=== PATIENT | female | born 1940 | race Native Hawaiian/Other Pacific Islander ===

== ENCOUNTER 2016-12-08 13:26 | Inpatient (IN) | payer OTHER, MEDICARE ==
[~2016-12-08] VITALS: Ht 167.6 cm; Wt 70.6 kg
[2016-12-08 14:23] VITALS: BP 152/54; TEMP 98.2; Ht 167.6 cm; Wt 70.6 kg
[2016-12-08 20:00] VITALS: BP 153/58; TEMP 97.6
[2016-12-09] VITALS: BP 147/61; TEMP 97.6
[2016-12-09 04:00] VITALS: BP 139/66; TEMP 97.4
[2016-12-09 05:50] LABS: PLATELET COUNT 255 K/uL (152-353)
[2016-12-09 06:00] LABS: POTASSIUM 4.1 mmol/L (3.6-5.2)
[2016-12-09 07:51] VITALS: BP 131/52; TEMP 97.8
[2016-12-09 20:00] VITALS: BP 131/59; TEMP 98.1
[2016-12-10 20:29] VITALS: BP 181/55; TEMP 97.8
[2016-12-11 20:21] VITALS: BP 143/54; TEMP 97.6
[2016-12-12 07:15] VITALS: BP 140/66; TEMP 97.5
[2016-12-12 20:04] VITALS: BP 115/56; TEMP 98.1
[2016-12-13 08:14] VITALS: BP 147/69; TEMP 97.7
[2016-12-13 20:00] VITALS: BP 114/46; TEMP 98.1
[2016-12-14 08:00] VITALS: BP 144/57; TEMP 97.8
[2016-12-14 20:00] VITALS: BP 127/56; TEMP 98.3
[2016-12-15 08:00] VITALS: BP 118/55; TEMP 97.6
[2016-12-15 20:14] VITALS: BP 134/48; TEMP 98.3
[2016-12-16 06:10] LABS: PLATELET COUNT 183 K/uL (152-353)
[2016-12-16 06:26] LABS: POTASSIUM 3.9 mmol/L (3.6-5.2)
[2016-12-16 07:52] VITALS: BP 173/63; TEMP 97.6
[2016-12-16 20:30] VITALS: BP 131/44; TEMP 97.8
[2016-12-17 08:00] VITALS: BP 164/59; TEMP 98
[2016-12-17 20:00] VITALS: BP 126/48; TEMP 97.8
[2016-12-18 08:00] VITALS: BP 131/72; TEMP 97.9
[2016-12-18 20:10] VITALS: BP 131/63; TEMP 98.9
[2016-12-19 08:00] VITALS: BP 121/46; TEMP 99.1
[2016-12-19 20:00] VITALS: BP 101/38; TEMP 98.4
[2016-12-20 08:00] VITALS: BP 137/41; TEMP 97.9
[2016-12-20 20:00] VITALS: BP 133/59; TEMP 98.3
[2016-12-21 08:00] VITALS: BP 122/68; TEMP 97.5
[2016-12-21 20:17] VITALS: BP 132/62; TEMP 98.3
[2016-12-22 08:00] VITALS: BP 118/58; TEMP 97.7
[2016-12-22 20:00] VITALS: BP 109/56; TEMP 98
[2016-12-23 08:00] VITALS: BP 118/58; TEMP 98
[2016-12-23 20:00] VITALS: BP 122/55; TEMP 98.1
[2016-12-24 10:08] VITALS: BP 130/61; TEMP 98.1
[2016-12-24 12:08] VITALS: BP 113/53; TEMP 97.8
[2016-12-24 14:08] VITALS: BP 121/58; TEMP 97.8
[2016-12-24 16:08] VITALS: BP 126/54; BP 131/64; TEMP 97.6; TEMP 97.7
[2016-12-24 20:00] VITALS: BP 133/52; TEMP 98.2
[2016-12-25 08:00] VITALS: BP 93/57; TEMP 97.8
[2016-12-25 20:33] VITALS: BP 126/61; TEMP 98
[2016-12-26 07:45] LABS: PLATELET COUNT 114 K/uL (152-353)
[2016-12-26 08:00] VITALS: BP 142/68; TEMP 98.2
[2016-12-26 08:10] LABS: POTASSIUM 4.3 mmol/L (3.6-5.2)
[2016-12-26 20:00] VITALS: BP 150/77; TEMP 97.9
[2016-12-27 08:00] VITALS: BP 132/59; TEMP 98
[2016-12-27 20:00] VITALS: BP 124/59; TEMP 97.8
[2016-12-28 08:00] VITALS: BP 117/55; TEMP 97.8
[2016-12-28 20:30] VITALS: BP 110/52; TEMP 97.9
[2016-12-29 08:00] VITALS: BP 110/54; TEMP 97.9
== END 2016-12-29 16:12 | disposition home or self-care (01) | DRG 556 ==
LOC: MED/SURG 13:26
PROVIDERS: Internal Medicine; ADMIT Internal Medicine
DX: M62.81 Muscle weakness (generalized) (principal); M86.8X7 Other osteomyelitis, ankle and foot; E11.9 Type 2 diabetes mellitus without complications; I12.9 Hypertensive chronic kidney disease with stage 1 through stage 4 chronic kidney disease, or unspecified chronic kidney disease; N18.3 Chronic kidney disease, stage 3 (moderate); E03.8 Other specified hypothyroidism; F03.90 Unspecified dementia, unspecified severity, without behavioral disturbance, psychotic disturbance, mood disturbance, and anxiety; M79.671 Pain in right foot
CPT/HCPCS: 36415; 36591; 80053; 80202; 82947; 82948; 85027; 85651; 96372; J0295; J1200; J1815; J2930

== ENCOUNTER 2017-01-20 11:08 | Outpatient (CLI) | payer OTHER, MEDICARE | END 2017-01-20 20:18 | disposition home or self-care (01) | LOC: RAD 11:08 | DX: T82.598A Other mechanical complication of other cardiac and vascular devices and implants, initial encounter (principal) ==

== ENCOUNTER 2017-12-08 11:13 | Outpatient (CLI) | payer OTHER, MEDICARE | END 2017-12-08 22:21 | disposition home or self-care (01) | LOC: LABW 11:13 | DX: E87.5 Hyperkalemia (principal); E83.52 Hypercalcemia | CPT/HCPCS: 36415; 82306; 82310 ==

== ENCOUNTER 2019-03-07 11:00 | Emergency (ER) | payer OTHER, MEDICARE ==
[~2019-03-07] VITALS: Ht 160 cm; Wt 70.8 kg
[2019-03-07 12:08] LABS: PLATELET COUNT 173 K/uL (152-353)
[2019-03-07 12:19] LABS: POTASSIUM 4.7 mmol/L (3.6-5.2)
[2019-03-07 13:14] VITALS: BP 136/48; TEMP 97.7
== END 2019-03-07 13:14 | disposition home or self-care (01) ==
LOC: ED 11:00
PROVIDERS: Emergency Medicine
PROC: 0HQ0XZZ Repair Scalp Skin, External Approach (ICD-10-PCS; principal; 2019-03-07)
DX: S01.01XA Laceration without foreign body of scalp, initial encounter (principal); S80.212A Abrasion, left knee, initial encounter; W01.198A Fall on same level from slipping, tripping and stumbling with subsequent striking against other object, initial encounter; Y92.89 Other specified places as the place of occurrence of the external cause
CPT/HCPCS: 80053; 85027; 90715; 93005; 96372; 99283

== ENCOUNTER 2019-03-13 14:05 | Inpatient (IN) | payer OTHER, MEDICARE ==
[~2019-03-13] VITALS: Ht 167.6 cm; Wt 69.9 kg
[2019-03-13 15:12] VITALS: BP 128/43; TEMP 98; Ht 167.6 cm; Wt 69.9 kg
[2019-03-13 15:51] LABS: PLATELET COUNT 168 K/uL (152-353)
[2019-03-13 16:06] LABS: POTASSIUM 4.2 mmol/L (3.6-5.2)
[2019-03-13] MEDS ORDERED: MEMA10TA2 PO (16:44)
[2019-03-13] MEDS ORDERED: LOVASTATIN40 MG PO (16:45)
[2019-03-13] MEDS ORDERED: GABA400C2 PO (16:47)
[2019-03-13] MEDS ORDERED: BENA20TA2 PO (16:48)
[2019-03-13] MEDS ORDERED: LEVO0.0723 PO (16:49)
[2019-03-13] MEDS ORDERED: LANTUS100 UNIT/M SC (16:50)
[2019-03-13 20:00] VITALS: BP 113/44; TEMP 98.9
[2019-03-14] VITALS: BP 103/53; TEMP 98.7
[2019-03-14 04:00] VITALS: BP 115/45; TEMP 98.4
[2019-03-14 06:23] LABS: PLATELET COUNT 158 K/uL (152-353)
[2019-03-14 06:34] LABS: POTASSIUM 3.7 mmol/L (3.6-5.2)
[2019-03-14 08:00] VITALS: BP 117/41; TEMP 97.6
[2019-03-14 12:00] VITALS: BP 100/45; TEMP 97.8
[2019-03-14 16:00] VITALS: BP 139/44; TEMP 98.3
[2019-03-14 20:00] VITALS: BP 129/51; TEMP 99.2
[2019-03-15] VITALS: BP 116/41; TEMP 98.9
[2019-03-15 04:00] VITALS: BP 109/42; TEMP 98
[2019-03-15 06:46] LABS: POTASSIUM 4.3 mmol/L (3.6-5.2)
[2019-03-15 06:56] LABS: PLATELET COUNT 139 K/uL (152-353)
[2019-03-15 08:00] VITALS: BP 120/49; TEMP 97.9
[2019-03-15 12:00] VITALS: BP 109/47; TEMP 97.9
[2019-03-15 16:00] VITALS: BP 137/54; TEMP 98
[2019-03-15 20:00] VITALS: BP 134/50; TEMP 99
[2019-03-16] VITALS: BP 127/42; TEMP 99.4
[2019-03-16 04:00] VITALS: BP 129/52; TEMP 89.9
[2019-03-16 08:00] VITALS: BP 125/61; TEMP 98.6
[2019-03-16] MEDS ORDERED: CEFD300C2 PO (09:58)
[2019-03-16] MEDS ORDERED: TYLENOL325 MG PO (09:58)
[2019-03-16] MEDS ORDERED: GABA100C2 PO (09:59)
== END 2019-03-16 10:35 | DRG 640 ==
LOC: MED/SURG 14:05
PROVIDERS: ADMIT Internal Medicine
DX: E86.0 Dehydration (principal); G92 Toxic encephalopathy; N39.0 Urinary tract infection, site not specified; N17.8 Other acute kidney failure; M86.8X7 Other osteomyelitis, ankle and foot; B96.1 Klebsiella pneumoniae [K. pneumoniae] as the cause of diseases classified elsewhere; E03.8 Other specified hypothyroidism; E11.69 Type 2 diabetes mellitus with other specified complication; E11.22 Type 2 diabetes mellitus with diabetic chronic kidney disease; I12.9 Hypertensive chronic kidney disease with stage 1 through stage 4 chronic kidney disease, or unspecified chronic kidney disease; N18.3 Chronic kidney disease, stage 3 (moderate); F03.90 Unspecified dementia, unspecified severity, without behavioral disturbance, psychotic disturbance, mood disturbance, and anxiety; R53.1 Weakness; R30.0 Dysuria
CPT/HCPCS: 80048; 80053; 81000; 82948; 83880; 84443; 85027; 87077; 87086; 87088; 87186; 93005; 93306; 96360; 96361; 96367; 96372; J0696; J1650; J1815

== ENCOUNTER 2019-03-17 04:24 | Outpatient (CLI) | payer OTHER ==
[~2019-03-17 04:24] MED LIST: BENA20TA2 PO; CEFD300C2 PO; GABA100C2 PO; GABA400C2 PO; LANTUS100 UNIT/M SC; LEVO0.0723 PO; LOVASTATIN40 MG PO; MEMA10TA2 PO; TYLENOL325 MG PO
[2019-03-17 05:41] LABS: PLATELET COUNT 192 K/uL (152-353)
[2019-03-17 06:02] LABS: POTASSIUM 4.5 mmol/L (3.6-5.2)
== END 2019-03-17 22:37 | disposition home or self-care (01) ==
LOC: LAB 04:24
PROVIDERS: Internal Medicine
DX: E11.9 Type 2 diabetes mellitus without complications (principal); I10 Essential (primary) hypertension
CPT/HCPCS: 80053; 80061; 82306; 83036; 84443; 85027; 87081

== ENCOUNTER 2019-03-26 15:23 | Outpatient (CLI) | payer OTHER | END 2019-03-26 19:43 | disposition home or self-care (01) | LOC: RAD 15:23 | DX: M79.605 Pain in left leg (principal) ==

== ENCOUNTER 2019-04-09 09:57 | Inpatient (IN) | payer OTHER | END 2019-05-10 10:38 | disposition still patient (30) | LOC: PAVB 09:57 | PROVIDERS: ADMIT Internal Medicine ==

== ENCOUNTER 2019-05-10 11:41 | Inpatient (IN) | payer OTHER | END 2019-06-10 16:29 | disposition still patient (30) | LOC: PAVB 11:41 | PROVIDERS: ADMIT Internal Medicine ==

== ENCOUNTER 2019-05-17 16:46 | Outpatient (CLI) | payer OTHER | END 2019-05-17 23:55 | disposition home or self-care (01) | LOC: RAD 16:46 | DX: M25.561 Pain in right knee (principal); M25.461 Effusion, right knee ==

== ENCOUNTER 2019-06-10 16:44 | Inpatient (IN) | payer OTHER | END 2019-07-10 09:36 | disposition still patient (30) | LOC: PAVB 16:44 | PROVIDERS: ADMIT Internal Medicine ==

== ENCOUNTER 2019-06-12 10:05 | Outpatient (CLI) | payer OTHER | END 2019-06-12 22:52 | disposition home or self-care (01) | LOC: LAB 10:05 | DX: E11.9 Type 2 diabetes mellitus without complications (principal) | CPT/HCPCS: 83036 ==

== ENCOUNTER 2019-06-18 20:27 | Outpatient (CLI) | payer OTHER | END 2019-06-18 22:42 | disposition home or self-care (01) | LOC: LAB 20:27 | DX: R73.9 Hyperglycemia, unspecified (principal) | CPT/HCPCS: 82947 ==

== ENCOUNTER 2019-06-26 20:03 | Outpatient (CLI) | payer OTHER, MEDICARE | END 2019-06-26 23:08 | disposition home or self-care (01) | LOC: LAB 20:03 | DX: E16.1 Other hypoglycemia (principal) | CPT/HCPCS: 82947 ==

== ENCOUNTER 2019-07-03 20:05 | Outpatient (CLI) | payer OTHER, MEDICARE | END 2019-07-03 21:21 | disposition home or self-care (01) | LOC: LAB 20:05 | DX: E11.21 Type 2 diabetes mellitus with diabetic nephropathy (principal) | CPT/HCPCS: 82947 ==

== ENCOUNTER 2019-07-10 11:58 | Inpatient (IN) | payer OTHER | END 2019-08-10 11:13 | disposition still patient (30) | LOC: PAVB 11:58 | PROVIDERS: ADMIT Internal Medicine ==

== ENCOUNTER 2019-08-10 12:05 | Inpatient (IN) | payer OTHER | END 2019-09-09 08:00 | disposition still patient (30) | LOC: PAVB 12:05 | PROVIDERS: ADMIT Internal Medicine ==

== ENCOUNTER 2019-09-09 11:11 | Inpatient (IN) | payer OTHER | END 2019-10-10 08:35 | disposition still patient (30) | LOC: PAVB 11:11 | PROVIDERS: ADMIT Internal Medicine ==

== ENCOUNTER 2019-09-13 06:44 | Outpatient (CLI) | payer OTHER, BC ==
[2019-09-13 08:17] LABS: PLATELET COUNT 179 K/uL (152-353)
[2019-09-13 08:48] LABS: POTASSIUM 4.6 mmol/L (3.6-5.2)
== END 2019-09-13 19:42 | disposition home or self-care (01) ==
LOC: LAB 06:44
PROVIDERS: Internal Medicine
DX: I10 Essential (primary) hypertension (principal); E11.9 Type 2 diabetes mellitus without complications
CPT/HCPCS: 36415; 80053; 82306; 83036; 84443; 85027

== ENCOUNTER 2019-10-10 08:58 | Inpatient (IN) | payer OTHER | END 2019-11-10 09:57 | disposition still patient (30) | LOC: PAVB 08:58 | PROVIDERS: ADMIT Internal Medicine ==

== ENCOUNTER 2019-11-10 10:43 | Inpatient (IN) | payer OTHER | END 2019-12-09 13:16 | disposition still patient (30) | LOC: PAVB 10:43 | PROVIDERS: ADMIT Internal Medicine ==

== ENCOUNTER 2019-12-09 14:07 | Inpatient (IN) | payer OTHER | END 2020-01-09 09:43 | disposition still patient (30) | LOC: PAVB 14:07 | PROVIDERS: ADMIT Internal Medicine ==

== ENCOUNTER 2019-12-12 08:34 | Outpatient (CLI) | payer OTHER | END 2019-12-12 19:28 | disposition home or self-care (01) | LOC: LAB 08:34 | DX: E11.9 Type 2 diabetes mellitus without complications (principal) | CPT/HCPCS: 83036 ==

== ENCOUNTER 2020-01-09 10:35 | Inpatient (IN) | payer OTHER | END 2020-02-08 09:04 | disposition still patient (30) | LOC: PAVB 10:35 | PROVIDERS: ADMIT Internal Medicine ==

== ENCOUNTER 2020-01-22 08:50 | Outpatient (CLI) | payer OTHER | END 2020-01-22 21:10 | disposition home or self-care (01) | LOC: RAD 08:50 | DX: Z91.81 History of falling (principal); M25.512 Pain in left shoulder ==

== ENCOUNTER 2020-02-08 10:15 | Inpatient (IN) | payer OTHER | END 2020-03-10 09:13 | disposition still patient (30) | LOC: PAVB 10:15 | PROVIDERS: ADMIT Internal Medicine | CPT/HCPCS: 87635; U0002 ==

== ENCOUNTER 2020-02-23 18:41 | Outpatient (CLI) | payer OTHER ==
[2020-02-23 18:52] LABS: PLATELET COUNT 175 K/uL (152-353)
[2020-02-23 19:02] LABS: POTASSIUM 4.5 mmol/L (3.6-5.2)
== END 2020-02-23 21:47 | disposition home or self-care (01) ==
LOC: LABW 18:41
PROVIDERS: Internal Medicine
DX: U07.1 COVID-19 (principal); Z79.899 Other long term (current) drug therapy
CPT/HCPCS: 80053; 85027; 85379; 86140

== ENCOUNTER 2020-02-25 11:52 | Outpatient (CLI) | payer OTHER | END 2020-02-25 19:42 | disposition home or self-care (01) | LOC: RESP 11:52 | DX: U07.1 COVID-19 (principal) | CPT/HCPCS: 93005 ==

== ENCOUNTER 2020-03-08 07:07 | Outpatient (CLI) | payer OTHER | END 2020-03-08 23:37 | disposition home or self-care (01) | LOC: LAB 07:07 | DX: E16.2 Hypoglycemia, unspecified (principal) | CPT/HCPCS: 82947 ==

== ENCOUNTER 2020-03-10 11:00 | Inpatient (IN) | payer OTHER | END 2020-04-09 10:22 | disposition still patient (30) | LOC: PAVB 11:00 | PROVIDERS: ADMIT Internal Medicine | CPT/HCPCS: 87635; U0002 ==

== ENCOUNTER 2020-03-11 03:20 | Outpatient (CLI) | payer OTHER ==
[2020-03-11 06:07] LABS: PLATELET COUNT 238 K/uL (152-353)
[2020-03-11 06:21] LABS: POTASSIUM 4.2 mmol/L (3.6-5.2)
== END 2020-03-11 19:04 | disposition home or self-care (01) ==
LOC: LAB 03:20
PROVIDERS: Internal Medicine
DX: E11.9 Type 2 diabetes mellitus without complications (principal); E03.8 Other specified hypothyroidism; E78.49 Other hyperlipidemia
CPT/HCPCS: 80053; 80061; 82306; 83036; 84443; 85027

== ENCOUNTER 2020-04-09 11:28 | Inpatient (IN) | payer OTHER | END 2020-05-10 09:18 | disposition still patient (30) | LOC: PAVB 11:28 | PROVIDERS: ADMIT Internal Medicine ==

== ENCOUNTER 2020-05-10 09:48 | Inpatient (IN) | payer OTHER | END 2020-06-10 12:19 | disposition still patient (30) | LOC: PAVB 09:48 | PROVIDERS: ADMIT Internal Medicine ==

== ENCOUNTER 2020-06-10 13:12 | Inpatient (IN) | payer OTHER | END 2020-07-10 11:07 | disposition still patient (30) | LOC: PAVB 13:12 | PROVIDERS: ADMIT Internal Medicine ==

== ENCOUNTER 2020-06-16 06:43 | Outpatient (CLI) | payer OTHER | END 2020-06-16 21:21 | disposition home or self-care (01) | LOC: LAB 06:43 | DX: E11.9 Type 2 diabetes mellitus without complications (principal) | CPT/HCPCS: 83036 ==

== ENCOUNTER 2020-07-10 13:54 | Inpatient (IN) | payer OTHER | END 2020-08-10 08:00 | disposition still patient (30) | LOC: PAVB 13:54 | PROVIDERS: ADMIT Internal Medicine ==

== ENCOUNTER 2020-08-10 09:00 | Inpatient (IN) | payer OTHER | END 2020-09-09 10:00 | disposition still patient (30) | LOC: PAVB 09:00 | PROVIDERS: ADMIT Internal Medicine; ATTEND Internal Medicine ==

== ENCOUNTER 2020-09-09 11:25 | Inpatient (IN) | payer OTHER | END 2020-10-10 09:05 | disposition still patient (30) | LOC: PAVB 11:25 | PROVIDERS: ADMIT Internal Medicine; ATTEND Internal Medicine ==

== ENCOUNTER 2020-09-12 09:15 | Outpatient (CLI) | payer OTHER ==
[2020-09-12 09:56] LABS: POTASSIUM 4.5 mmol/L (3.6-5.2)
[2020-09-12 10:17] LABS: PLATELET COUNT 182 K/uL (152-353)
== END 2020-09-12 18:56 | disposition home or self-care (01) ==
LOC: LAB 09:15
PROVIDERS: ATTEND Internal Medicine
DX: E11.9 Type 2 diabetes mellitus without complications (principal); I10 Essential (primary) hypertension; E03.8 Other specified hypothyroidism; E55.9 Vitamin D deficiency, unspecified
CPT/HCPCS: 80053; 82306; 83036; 84443; 85027

== ENCOUNTER 2020-09-21 10:30 | Outpatient (CLI) | payer OTHER | END 2020-09-21 19:41 | disposition home or self-care (01) | LOC: LAB 10:30 | PROVIDERS: ATTEND Internal Medicine | DX: R19.7 Diarrhea, unspecified (principal) | CPT/HCPCS: 83630; 87015; 87045; 87324; 87328; 87329; 87449; 87899 ==

== ENCOUNTER 2020-10-10 09:36 | Inpatient (IN) | payer OTHER | END 2020-11-10 14:58 | disposition still patient (30) | LOC: PAVB 09:36 | PROVIDERS: ADMIT Internal Medicine; ATTEND Internal Medicine ==

== ENCOUNTER 2020-11-10 15:28 | Inpatient (IN) | payer OTHER | END 2020-12-08 09:56 | disposition still patient (30) | LOC: PAVB 15:28 | PROVIDERS: ADMIT Internal Medicine; ATTEND Internal Medicine ==

== ENCOUNTER 2020-11-13 08:33 | Outpatient (CLI) | payer OTHER | END 2020-11-13 20:05 | disposition home or self-care (01) | LOC: LAB 08:33 | PROVIDERS: ATTEND Internal Medicine | DX: E03.8 Other specified hypothyroidism (principal) | CPT/HCPCS: 84443 ==

== ENCOUNTER 2020-12-08 10:37 | Inpatient (IN) | payer OTHER | END 2021-01-08 10:16 | disposition still patient (30) | LOC: PAVB 10:37 | PROVIDERS: ADMIT Internal Medicine; ATTEND Internal Medicine ==

== ENCOUNTER 2020-12-08 12:00 | Outpatient (CLI) | payer OTHER | END 2020-12-08 23:14 | disposition home or self-care (01) | LOC: LAB 12:00 | PROVIDERS: ATTEND Internal Medicine | DX: E11.9 Type 2 diabetes mellitus without complications (principal) | CPT/HCPCS: 83036 ==

== ENCOUNTER 2021-01-01 22:02 | Outpatient (CLI) | payer OTHER | END 2021-01-01 23:05 | LOC: LAB 22:02 | PROVIDERS: ATTEND Internal Medicine | DX: E11.9 Type 2 diabetes mellitus without complications (principal) | CPT/HCPCS: 82947 ==

== ENCOUNTER 2021-01-08 10:51 | Inpatient (IN) | payer OTHER | END 2021-02-07 10:52 | disposition still patient (30) | LOC: PAVB 10:51 | PROVIDERS: ADMIT Internal Medicine; ATTEND Internal Medicine ==

== ENCOUNTER 2021-01-22 14:10 | Outpatient (CLI) | payer OTHER | END 2021-01-22 22:01 | disposition home or self-care (01) | LOC: INF 14:10 | PROVIDERS: ATTEND Internal Medicine | DX: Z23 Encounter for immunization (principal) | CPT/HCPCS: 96372 ==

== ENCOUNTER 2021-02-07 11:22 | Inpatient (IN) | payer OTHER | END 2021-03-10 14:41 | disposition still patient (30) | LOC: PAVB 11:22 | PROVIDERS: ADMIT Internal Medicine; ATTEND Internal Medicine ==

== ENCOUNTER 2021-02-12 08:36 | Outpatient (CLI) | payer OTHER | END 2021-02-12 20:24 | disposition home or self-care (01) | LOC: INF 08:36 | PROVIDERS: ATTEND Internal Medicine | DX: Z23 Encounter for immunization (principal) | CPT/HCPCS: 96372 ==

== ENCOUNTER 2021-03-10 07:33 | Outpatient (CLI) | payer OTHER ==
[2021-03-10 09:39] LABS: PLATELET COUNT 167 K/uL (152-353)
[2021-03-10 10:10] LABS: POTASSIUM 3.9 mmol/L (3.6-5.2)
== END 2021-03-10 19:07 | disposition home or self-care (01) ==
LOC: LAB 07:33
PROVIDERS: ATTEND Internal Medicine
DX: E78.49 Other hyperlipidemia (principal); E11.9 Type 2 diabetes mellitus without complications
CPT/HCPCS: 80053; 80061; 82306; 83036; 84443; 85027

== ENCOUNTER 2021-03-10 15:26 | Inpatient (IN) | payer OTHER | END 2021-04-09 08:00 | disposition still patient (30) | LOC: PAVB 15:26 | PROVIDERS: ADMIT Internal Medicine; ATTEND Internal Medicine ==

== ENCOUNTER 2021-03-16 09:54 | Outpatient (CLI) | payer OTHER | END 2021-03-16 21:46 | disposition home or self-care (01) | LOC: RAD 09:54 | PROVIDERS: ATTEND Internal Medicine | DX: Z13.820 Encounter for screening for osteoporosis (principal); N95.8 Other specified menopausal and perimenopausal disorders ==

== ENCOUNTER 2021-04-09 09:00 | Inpatient (IN) | payer OTHER | END 2021-05-10 08:00 | disposition still patient (30) | LOC: PAVB 09:00 | PROVIDERS: ADMIT Internal Medicine; ATTEND Internal Medicine ==

== ENCOUNTER 2021-05-05 05:59 | Outpatient (CLI) | payer OTHER | END 2021-05-05 20:30 | disposition home or self-care (01) | LOC: LAB 05:59 | PROVIDERS: ATTEND Internal Medicine | DX: M10.9 Gout, unspecified (principal) | CPT/HCPCS: 84550 ==

== ENCOUNTER 2021-05-10 09:00 | Inpatient (IN) | payer OTHER | END 2021-06-10 10:36 | disposition still patient (30) | LOC: PAVB 09:00 | PROVIDERS: ADMIT Internal Medicine; ATTEND Internal Medicine ==

== ENCOUNTER 2021-06-10 13:43 | Inpatient (IN) | payer OTHER | END 2021-07-10 08:46 | disposition still patient (30) | LOC: PAVB 13:43 | PROVIDERS: ADMIT Internal Medicine; ATTEND Internal Medicine ==

== ENCOUNTER 2021-06-11 07:44 | Outpatient (CLI) | payer OTHER | END 2021-06-11 21:22 | disposition home or self-care (01) | LOC: LAB 07:44 | PROVIDERS: ATTEND Internal Medicine | DX: E11.9 Type 2 diabetes mellitus without complications (principal) | CPT/HCPCS: 83036 ==

== ENCOUNTER 2021-06-23 07:07 | Outpatient (CLI) | payer OTHER | END 2021-06-23 19:00 | disposition home or self-care (01) | LOC: LAB 07:07 | PROVIDERS: ATTEND Internal Medicine | DX: M10.9 Gout, unspecified (principal) | CPT/HCPCS: 84550 ==

== ENCOUNTER 2021-09-09 10:56 | Inpatient (IN) | payer OTHER | END 2021-10-10 08:24 | disposition still patient (30) | LOC: PAVB 10:56 | PROVIDERS: ADMIT Internal Medicine; ATTEND Internal Medicine ==

== ENCOUNTER 2021-09-09 12:11 | Outpatient (CLI) | payer OTHER ==
[2021-09-09 13:07] LABS: PLATELET COUNT 148 K/uL (152-353)
[2021-09-09 13:38] LABS: POTASSIUM 4.1 mmol/L (3.6-5.2)
== END 2021-09-09 20:27 | disposition home or self-care (01) ==
LOC: LAB 12:11
PROVIDERS: ATTEND Internal Medicine
DX: E11.9 Type 2 diabetes mellitus without complications (principal); E03.8 Other specified hypothyroidism; E55.9 Vitamin D deficiency, unspecified
CPT/HCPCS: 80053; 82306; 83036; 84443; 85027

== ENCOUNTER 2021-09-25 07:05 | Outpatient (CLI) | payer OTHER | END 2021-09-25 19:23 | disposition home or self-care (01) | LOC: LAB 07:05 | PROVIDERS: ATTEND Internal Medicine | DX: M10.9 Gout, unspecified (principal) | CPT/HCPCS: 36415; 84550 ==

== ENCOUNTER 2021-10-10 09:06 | Inpatient (IN) | payer OTHER | END 2021-11-10 09:33 | disposition still patient (30) | LOC: PAVB 09:06 | PROVIDERS: ADMIT Internal Medicine; ATTEND Internal Medicine ==

== ENCOUNTER 2021-11-10 15:47 | Inpatient (IN) | payer OTHER | END 2021-12-08 08:58 | disposition still patient (30) | LOC: PAVB 15:47 | PROVIDERS: ADMIT Internal Medicine; ATTEND Internal Medicine ==

== ENCOUNTER 2021-12-08 12:27 | Inpatient (IN) | payer OTHER | END 2022-01-08 08:41 | disposition still patient (30) | LOC: PAVB 12:27 | PROVIDERS: ADMIT Internal Medicine; ATTEND Internal Medicine ==

== ENCOUNTER 2021-12-10 09:02 | Outpatient (CLI) | payer OTHER | END 2021-12-10 19:08 | disposition home or self-care (01) | LOC: LAB 09:02 | PROVIDERS: ATTEND Internal Medicine | DX: E11.9 Type 2 diabetes mellitus without complications (principal) | CPT/HCPCS: 83036 ==

== ENCOUNTER 2022-01-08 08:29 | Outpatient (CLI) | payer OTHER | END 2022-01-08 20:47 | disposition home or self-care (01) | LOC: LAB 08:29 | PROVIDERS: ATTEND Internal Medicine | DX: E11.9 Type 2 diabetes mellitus without complications (principal) | CPT/HCPCS: 83036 ==

== ENCOUNTER 2022-01-08 09:36 | Inpatient (IN) | payer OTHER | END 2022-02-07 10:17 | disposition still patient (30) | LOC: PAVB 09:36 | PROVIDERS: ADMIT Internal Medicine; ATTEND Internal Medicine ==

== ENCOUNTER 2022-01-17 07:05 | Outpatient (CLI) | payer OTHER | END 2022-01-17 19:40 | disposition home or self-care (01) | LOC: LAB 07:05 | PROVIDERS: ATTEND Internal Medicine | DX: R82.998 Other abnormal findings in urine (principal); R35.0 Frequency of micturition; R41.82 Altered mental status, unspecified | CPT/HCPCS: 81000; 87077; 87086; 87088; 87186 ==

== ENCOUNTER 2022-02-06 22:51 | Outpatient (CLI) | payer OTHER | END 2022-02-06 23:32 | disposition home or self-care (01) | LOC: LAB 22:51 | PROVIDERS: ATTEND Internal Medicine | DX: N39.0 Urinary tract infection, site not specified (principal) | CPT/HCPCS: 81000; 87088 ==

== ENCOUNTER 2022-02-07 12:52 | Inpatient (IN) | payer OTHER | END 2022-03-10 09:36 | disposition still patient (30) | LOC: PAVB 12:52 | PROVIDERS: ADMIT Internal Medicine; ATTEND Internal Medicine ==

== ENCOUNTER 2022-02-08 15:09 | Outpatient (CLI) | payer OTHER ==
[2022-02-08 15:19] LABS: PLATELET COUNT 181 K/uL (152-353)
[2022-02-08 15:29] LABS: POTASSIUM 5.1 mmol/L (3.6-5.2)
== END 2022-02-08 19:04 | disposition home or self-care (01) ==
LOC: LAB 15:09
PROVIDERS: ATTEND Internal Medicine
DX: M62.81 Muscle weakness (generalized) (principal); I50.9 Heart failure, unspecified; E11.22 Type 2 diabetes mellitus with diabetic chronic kidney disease; I11.0 Hypertensive heart disease with heart failure; N18.30 Chronic kidney disease, stage 3 unspecified
CPT/HCPCS: 80053; 85027

== ENCOUNTER 2022-03-01 14:52 | Outpatient (CLI) | payer OTHER ==
[2022-03-01 15:17] LABS: POTASSIUM 4.4 mmol/L (3.6-5.2)
[2022-03-01 15:26] LABS: PLATELET COUNT 286 K/uL (152-353)
== END 2022-03-01 19:02 | disposition home or self-care (01) ==
LOC: LAB 14:52
PROVIDERS: ATTEND Internal Medicine
DX: R63.0 Anorexia (principal)
CPT/HCPCS: 80053; 85027

== ENCOUNTER 2022-03-10 09:07 | Outpatient (CLI) | payer OTHER ==
[2022-03-10 10:05] LABS: PLATELET COUNT 264 K/uL (152-353)
== END 2022-03-10 19:10 | disposition home or self-care (01) ==
LOC: LAB 09:07
PROVIDERS: ATTEND Internal Medicine
DX: E78.49 Other hyperlipidemia (principal); E11.9 Type 2 diabetes mellitus without complications; N18.30 Chronic kidney disease, stage 3 unspecified
CPT/HCPCS: 80053; 80061; 82306; 83036; 84443; 85027

== ENCOUNTER 2022-03-10 13:31 | Inpatient (IN) | payer OTHER | END 2022-04-09 09:04 | disposition still patient (30) | LOC: PAVB 13:31 | PROVIDERS: ADMIT Internal Medicine; ATTEND Internal Medicine ==

== ENCOUNTER 2022-04-09 11:08 | Inpatient (IN) | payer OTHER | END 2022-05-10 09:16 | disposition still patient (30) | LOC: PAVB 11:08 | PROVIDERS: ADMIT Internal Medicine; ATTEND Internal Medicine ==

== ENCOUNTER 2022-05-10 11:36 | Inpatient (IN) | payer OTHER | END 2022-06-10 09:02 | disposition still patient (30) | LOC: PAVB 11:36 | PROVIDERS: ADMIT Internal Medicine; ATTEND Internal Medicine ==

== ENCOUNTER 2022-06-10 11:47 | Inpatient (IN) | payer OTHER | END 2022-07-10 10:25 | disposition still patient (30) | LOC: PAVB 11:47 | PROVIDERS: ADMIT Internal Medicine Endocrinology, Diabetes & Metabolism; ATTEND Internal Medicine Endocrinology, Diabetes & Metabolism ==

== ENCOUNTER 2022-06-11 16:26 | Outpatient (CLI) | payer OTHER | END 2022-06-11 21:52 | disposition home or self-care (01) | LOC: RAD 16:26 | PROVIDERS: ATTEND Internal Medicine Endocrinology, Diabetes & Metabolism | DX: R05.9 Cough, unspecified (principal) ==

== ENCOUNTER 2022-06-14 07:09 | Outpatient (CLI) | payer OTHER | END 2022-06-14 18:52 | disposition home or self-care (01) | LOC: LAB 07:09 | PROVIDERS: ATTEND Internal Medicine Endocrinology, Diabetes & Metabolism | DX: E11.9 Type 2 diabetes mellitus without complications (principal) | CPT/HCPCS: 36415; 83036 ==

== ENCOUNTER 2022-06-21 14:18 | Outpatient (CLI) | payer OTHER ==
[2022-06-21 17:35] LABS: PLATELET COUNT 345 K/uL (152-353)
[2022-06-21 17:54] LABS: POTASSIUM 5.9 mmol/L (3.6-5.2)
== END 2022-06-21 19:23 | disposition home or self-care (01) ==
LOC: LAB 14:18
PROVIDERS: ATTEND Internal Medicine Endocrinology, Diabetes & Metabolism
DX: R85.5 Abnormal microbiological findings in specimens from digestive organs and abdominal cavity (principal)
CPT/HCPCS: 80048; 85027; 87015; 87045; 87324; 87449; 87899

== ENCOUNTER 2022-06-23 07:25 | Outpatient (CLI) | payer OTHER | END 2022-06-23 18:47 | disposition home or self-care (01) | LOC: LAB 07:25 | PROVIDERS: ATTEND Internal Medicine Endocrinology, Diabetes & Metabolism | DX: R85.5 Abnormal microbiological findings in specimens from digestive organs and abdominal cavity (principal) | CPT/HCPCS: 87046 ==

== ENCOUNTER 2022-07-10 12:31 | Inpatient (IN) | payer OTHER | END 2022-08-10 14:46 | disposition still patient (30) | LOC: PAVB 12:31 | PROVIDERS: ADMIT Internal Medicine Endocrinology, Diabetes & Metabolism; ATTEND Internal Medicine Endocrinology, Diabetes & Metabolism ==

== ENCOUNTER 2022-08-10 15:27 | Inpatient (IN) | payer OTHER | END 2022-09-09 15:04 | disposition still patient (30) | LOC: PAVB 15:27 | PROVIDERS: ADMIT Internal Medicine Endocrinology, Diabetes & Metabolism; ATTEND Internal Medicine Endocrinology, Diabetes & Metabolism ==

== ENCOUNTER 2022-09-10 09:33 | Outpatient (CLI) | payer OTHER ==
[2022-09-10 10:20] LABS: POTASSIUM 4.8 mmol/L (3.6-5.2)
[2022-09-10 10:26] LABS: PLATELET COUNT 232 K/uL (152-353)
== END 2022-09-10 19:17 | disposition home or self-care (01) ==
LOC: LAB 09:33
PROVIDERS: ATTEND Internal Medicine Endocrinology, Diabetes & Metabolism
DX: E11.9 Type 2 diabetes mellitus without complications (principal); E03.8 Other specified hypothyroidism; N18.30 Chronic kidney disease, stage 3 unspecified; I12.9 Hypertensive chronic kidney disease with stage 1 through stage 4 chronic kidney disease, or unspecified chronic kidney disease
CPT/HCPCS: 80053; 82306; 83036; 84443; 85027

== ENCOUNTER 2022-09-20 12:05 | Observation (INO) | payer OTHER ==
[~2022-09-20] VITALS: Ht 167.6 cm; Wt 59.9 kg
[2022-09-20 12:10] VITALS: BP 147/126; TEMP 98.8
[2022-09-20 12:47] LABS: PLATELET COUNT 244 K/uL (152-353)
[2022-09-20 13:06] LABS: POTASSIUM 4.9 mmol/L (3.6-5.2)
[2022-09-20 13:09] VITALS: BP 83/53
[2022-09-20 14:09] VITALS: BP 110/68
[2022-09-20 15:09] VITALS: BP 127/71
[2022-09-20 17:05] VITALS: BP 92/43; TEMP 97.2; Ht 167.6 cm; Wt 59.9 kg
[2022-09-20] MEDS ORDERED: ALLERGY10 M2 PO (18:32)
[2022-09-20] MEDS ORDERED: MULTIVITAMI1 PO (18:32)
[2022-09-20] MEDS ORDERED: ACID CONTROL20 MG PO (18:33)
[2022-09-20] MEDS ORDERED: INSUINJ8 SC (18:34)
[2022-09-20] MEDS ORDERED: COLC0.6T6 PO (18:35)
[2022-09-20] MEDS ORDERED: LEVO0.0529 PO (18:35)
[2022-09-20] MEDS ORDERED: MEGESTROL400 MG/10 PO (18:36)
[2022-09-20] MEDS ORDERED: NEURONTIN 100M100 MG PO (18:37)
[2022-09-20] MEDS ORDERED: METF500T PO (18:37)
[2022-09-20] MEDS ORDERED: NOVOLOG100 UNIT/M SC (18:39)
[2022-09-20] MEDS ORDERED: MAGIC CUP PO (18:40)
[2022-09-20] MEDS ORDERED: ASCORBIC ACD500 MG PO (18:40)
[2022-09-20] MEDS ORDERED: MUCINEX FA PO (18:41)
[2022-09-20] MEDS ORDERED: TYLENOL325 MG PO (18:42)
[2022-09-20] MEDS ORDERED: ONDA4TAB3 PO (18:42)
[2022-09-20] MEDS ORDERED: D3 20002000 UNIT PO (18:43)
[2022-09-20 20:00] VITALS: BP 110/75; TEMP 96.9
[2022-09-21] VITALS (8 sets, daily range): BP systolic 82–121; BP diastolic 34–75; TEMP 96.1–98.5
[2022-09-21 05:39] LABS: PLATELET COUNT 215 K/uL (152-353)
[2022-09-21 05:53] LABS: POTASSIUM 4.4 mmol/L (3.6-5.2)
[2022-09-22 00:10] VITALS: BP 124/59; TEMP 97
[2022-09-22 04:10] VITALS: BP 129/61; TEMP 97.7
[2022-09-22 06:18] LABS: PLATELET COUNT 213 K/uL (152-353)
[2022-09-22 08:10] VITALS: BP 110/61; TEMP 98
[2022-09-22 12:10] VITALS: BP 98/56; TEMP 98.5
[2022-09-22] MEDS ORDERED: CEFT1INJ27 INJ (13:39)
[2022-09-22] MEDS ORDERED: IRON325 MG PO (13:40)
[2022-09-22] MEDS ORDERED: DOCU100C10 PO (13:41)
== END 2022-09-22 15:07 ==
LOC: ED 12:05 → MED/SURG 15:30
PROVIDERS: Emergency Medicine Emergency Medical Services; ADMIT Internal Medicine; ATTEND Internal Medicine
DX: N39.0 Urinary tract infection, site not specified (principal); D50.8 Other iron deficiency anemias; E86.0 Dehydration; D63.8 Anemia in other chronic diseases classified elsewhere; R62.7 Adult failure to thrive; F03.90 Unspecified dementia, unspecified severity, without behavioral disturbance, psychotic disturbance, mood disturbance, and anxiety; B96.20 Unspecified Escherichia coli [E. coli] as the cause of diseases classified elsewhere; E11.22 Type 2 diabetes mellitus with diabetic chronic kidney disease; E11.65 Type 2 diabetes mellitus with hyperglycemia; I13.0 Hypertensive heart and chronic kidney disease with heart failure and stage 1 through stage 4 chronic kidney disease, or unspecified chronic kidney disease; N18.32 Chronic kidney disease, stage 3b; I50.9 Heart failure, unspecified; Z79.4 Long term (current) use of insulin; Z68.21 Body mass index [BMI] 21.0-21.9, adult; L89.623 Pressure ulcer of left heel, stage 3; L89.613 Pressure ulcer of right heel, stage 3; L98.8 Other specified disorders of the skin and subcutaneous tissue
CPT/HCPCS: 36415; 80053; 81002; 82607; 82728; 82746; 82948; 83540; 83735; 83880; 84100; 84484; 85027; 85610; 87040; 87077; 87086; 87088; 87186; 87502; 87635; 93005; 96360; 96361; 96365; 96366; 96367; 96372; 99220; 99284; G0378; J0696; J1650; J1815; U0003